=== PATIENT | female | born 1960 | race Caucasian/White ===

== ENCOUNTER → 2018-01-05 09:36 | Outpatient (CLI) | payer OTHER, SELFPAY ==
--- NOTE | 2018-01-05 09:42 | BI_ITS ---
MAMMOGRAPHY - BILATERAL SCREENING REASON FOR EXAM: Female, 57 years old. Routine annual screening examination. PERTINENT HISTORY: Sister with breast cancer. Mother with breast cancer. Aunt with breast cancer. Remote left excisional breast biopsies. TECHNIQUE: Digital bilateral breast nara (3D mammographic acquisition) in the CC and MLO projections. 2-D mediolateral oblique (MLO) and craniocaudad (CC) views of both breasts were obtained. CAD: Full Field Digital Mammography with Computer Added Detection was performed. COMPARISON: Comparison is made with prior study dated September 22, 2016 and May 22, 2015. FINDINGS: Breast Composition: The breasts are heterogeneously dense, which may obscure small masses. There are no dominant masses or suspicious calcifications. Stable small bilateral axillary lymph nodes. Stable skin calcifications in the deep inferior medial aspects of both breasts. No other significant abnormalities are identified. There has been no significant change since the prior study. BI/SCREENING MAMM (CAD), BILAT IMPRESSION: Stable bilateral screening mammogram. Yearly follow-up mammogram recommended. (A) ASSESSMENT CATEGORY: BIRADS Category 2: Benign. A letter regarding these results will be sent to the patient by the facility within 30 days. Approximately 10% of breast cancers are not detected by mammography. A normal mammogram should not delay biopsy of a clinically suspicious abnormality. [id number] Electronically Signed: Dereck Flores MD at 11:19 EST Tel [phone], Service support ,
== END ==
LOC: BIRAD 09:37 → OPBI 10:02
PROVIDERS: Family Provider Family Medicine; PCP Family Medicine; Visit Provider Family Medicine
DX: Z12.31 Encounter for screening mammogram for malignant neoplasm of breast (principal)
CPT/HCPCS: 77063; 77067

== ENCOUNTER → 2019-03-07 08:10 | Outpatient (CLI) | payer OTHER, SELFPAY ==
--- NOTE | 2019-03-07 07:23 | BI_ITS ---
MAMMOGRAPHY - BILATERAL SCREENING REASON FOR EXAM: Female, 58 years old. Routine annual screening examination. PERTINENT HISTORY: Sister with breast cancer. Mother with breast cancer. Aunt with breast cancer. Remote left excisional breast biopsies. TECHNIQUE: Digital bilateral breast celestino (3D mammographic acquisition) in the CC and MLO projections. 2-D mediolateral oblique (MLO) and craniocaudad (CC) views of both breasts were obtained. CAD: Full Field Digital Mammography with Computer Added Detection was performed. COMPARISON: Comparison is made with prior study dated January 05, 2018 and September 22, 2016. FINDINGS: Breast Composition: The breasts are heterogeneously dense, which may obscure small masses. There are no dominant masses or suspicious calcifications. Stable benign-appearing bilateral axillary lymph nodes. Stable skin calcifications seen in the deep inferior medial aspects of both breasts. No other significant abnormalities are identified. There has been no significant change since the prior study. BI/SCREEN MAMM (CAD) W/CELESTINO BILAT IMPRESSION: Stable bilateral screening mammogram. Yearly follow-up mammogram recommended. (A) ASSESSMENT CATEGORY: BIRADS Category 2: Benign. A letter regarding these results will be sent to the patient by the facility within 30 days. Approximately 10% of breast cancers are not detected by mammography. A normal mammogram should not delay biopsy of a clinically suspicious abnormality. [id number] Electronically Signed: Dereck Flores, at 8:30 EST , Service support ,
== END ==
PROVIDERS: PCP Family Medicine; Referring Provider Family Medicine; Visit Provider Family Medicine
DX: Z12.31 Encounter for screening mammogram for malignant neoplasm of breast (principal)
CPT/HCPCS: 77063; 77067

== ENCOUNTER → 2019-10-26 06:47 | Outpatient (CLI) | payer OTHER, SELFPAY ==
[2019-10-26 08:13] LABS: Microalbumin,Random Urine 7.1 mg/L (NO RANGE EST.); Microalbumin:Creatinine Ratio 6.2 mg/g CRE (<30 mg/g CRE)
[2019-10-26 09:03] LABS: Hemoglobin A1c 7.1 % (3.8-5.6)
== END ==
PROVIDERS: PCP Family Medicine; Referring Provider Family Medicine; Visit Provider Family Medicine
DX: E11.9 Type 2 diabetes mellitus without complications (principal)
CPT/HCPCS: 36415; 82043; 82570; 83036

== ENCOUNTER → 2021-08-26 | Outpatient (CLI) | payer OTHER, SELFPAY ==
--- NOTE | 2021-08-26 14:47 | BI_ITS ---
MAMMOGRAPHY - BILATERAL SCREENING REASON FOR EXAM: Female, 61 years old. Routine annual screening examination. PERTINENT HISTORY: Sister with breast cancer. Mother with breast cancer. Aunt with breast cancer. Prior left excisional breast biopsy. TECHNIQUE: Digital bilateral breast celestino (3D mammographic acquisition) in the CC and MLO projections. 2-D mediolateral oblique (MLO) and craniocaudad (CC) views of both breasts were obtained. CAD: Full Field Digital Mammography with Computer Added Detection was performed. COMPARISON: Comparison is made with prior examination dated 07/10/2020 and 03/07/2019. FINDINGS: Breast Composition: The breasts are heterogeneously dense, which may obscure small masses. There are no dominant masses or suspicious calcifications. Stable benign-appearing bilateral axillary lymph nodes. Stable skin calcifications in the deep inferior medial aspects of both breasts. No other significant abnormalities are identified. There has been no significant change since the prior study. BI/SCRN MAMM (CAD)W/CELESTINO BILAT IMPRESSION: Stable bilateral screening mammogram. Yearly follow-up mammogram recommended. (A) ASSESSMENT CATEGORY: BIRADS Category 2: Benign. A letter regarding these results will be sent to the patient by the facility within 30 days. Approximately 10% of breast cancers are not detected by mammography. A normal mammogram should not delay biopsy of a clinically suspicious abnormality. [id number] Electronically Signed: Dereck Flores MD at 15:34 EDT ,
== END | disposition home or self-care (01) ==
LOC: OPBI 14:45
PROVIDERS: PCP Family Medicine; Visit Provider Family Medicine
DX: Z12.31 Encounter for screening mammogram for malignant neoplasm of breast (principal)
CPT/HCPCS: 77063; 77067

== ENCOUNTER → 2021-10-19 | Outpatient (CLI) | payer OTHER, SELFPAY ==
[2021-10-26 11:07] LABS: Age Gdln ACOG Testing 30-65 (.)
[2021-10-26 14:19] LABS: HPV APTIMA, High Risk Negative (Negative)
[2021-10-26 14:21] LABS: HPV Reflexed? YES, CHARGE PATIENT
== END | disposition home or self-care (01) ==
PROVIDERS: PCP Family Medicine; Visit Provider Family Medicine
DX: Z01.419 Encounter for gynecological examination (general) (routine) without abnormal findings (principal); Z12.4 Encounter for screening for malignant neoplasm of cervix
CPT/HCPCS: 87624; 88175; G0145

== ENCOUNTER → 2023-01-11 | Outpatient (CLI) | payer OTHER, SELFPAY ==
--- NOTE | 2023-01-11 07:08 | BI_ITS ---
MAMMOGRAPHY - BILATERAL SCREENING REASON FOR EXAM: Female, 62 years old. Routine annual screening examination. PERTINENT HISTORY: Sister with breast cancer. Mother with breast cancer. Aunt with breast cancer. Prior left excisional breast biopsies. TECHNIQUE: Digital bilateral breast celestino (3D mammographic acquisition) in the CC and MLO projections. 2-D mediolateral oblique (MLO) and craniocaudad (CC) views of both breasts were obtained. CAD: Full Field Digital Mammography with Computer Added Detection was performed. COMPARISON: Comparison is made with prior study dated August 26, 2021 and July 10, 2020. FINDINGS: Breast Composition: The breasts are heterogeneously dense, which may obscure small masses. There are no dominant masses or suspicious calcifications. Stable bilateral axillary lymph nodes. Stable skin calcifications in the deep inferior medial aspects of both breasts. No other significant abnormalities are identified. There has been no significant change since the prior study. BI/SCRN MAMM (CAD)W/CELESTINO BILAT IMPRESSION: Stable bilateral screening mammogram. Yearly follow-up mammogram recommended. (A) ASSESSMENT CATEGORY: BIRADS Category 2: Benign. A letter regarding these results will be sent to the patient by the facility within 30 days. Approximately 10% of breast cancers are not detected by mammography. A normal mammogram should not delay biopsy of a clinically suspicious abnormality. [id number] Electronically Signed: Dereck Flores MD at 8:47 EST ,
== END | disposition home or self-care (01) ==
LOC: OPBI 06:49
PROVIDERS: PCP Family Medicine; Referring Provider Family Medicine; Visit Provider Family Medicine
DX: Z12.31 Encounter for screening mammogram for malignant neoplasm of breast (principal); Z80.3 Family history of malignant neoplasm of breast
CPT/HCPCS: 77063; 77067

== ENCOUNTER 2023-03-10 08:19 | Emergency (ER) | payer OTHER, SELFPAY ==
[2023-03-10] VITALS (15 sets, daily range): BP systolic 143–149; BP diastolic 83–93; PULSE 96–220; RESP 12–25; TEMP 36.4; O2SAT 96–99; BMI 28.8
--- NOTE | 2023-03-10 08:32 | EX.ED.DYSGE1 ---
HPI History of Present Illness Chief Complaint: Palpitations Narrative Narrative: 62-year-old female presenting with palpitations and rapid heart rate. She states she was just walking at work here at [facility] and noticed that her heart was going very quickly.Patient states she has had this in the past that she just tried to calm self down and has not been seen by anybody for this.Patient denies any cardiac history. She has past medical history of hypertension, diabetes.Patient states she has no medication changes. She states that 3 weeks ago she had COVID-19 but otherwise feels well. Denies any chest pain, shortness of breath.Patient otherwise has been eating and drinking normally. She has been making normal urine and stool. No recent travel, surgery, exogenous hormones,History of DVT/PE. She states she was bedbound with COVID a few weeks ago however. [facility] Medical History Arthritis Breast lump Hyperlipidemia IBS (irritable bowel syndrome) Impaired glucose tolerance test Infected sebaceous cyst Migraine Home Medications amitriptyline 10 mg tablet 10 mg PO QHS migraine 11/22/13 [History Last Taken 03/09/23] metformin 500 mg tablet,extended release 24 hr 1,000 mg PO DAILY diabetes 11/22/13 [History Last Taken 03/10/23] aspirin 81 mg tablet,delayed release (Adult Low Dose Aspirin) 81 mg PO DAILY heart health 01/08/17 [History Last Taken 03/10/23] cholecalciferol (vitamin D3) 25 mcg (1,000 unit) capsule 1,000 unit PO QDAY supplement 01/08/17 [History Last Taken 03/10/23] hydrochlorothiazide 12.5 mg tablet 12.5 mg PO DAILY blood pressure 01/08/17 [History Last Taken 03/10/23] triamcinolone acetonide 55 mcg nasal spray aerosol (Nasacort) 2 spray intranasal QDAY PRN allergies 01/08/17 [History Last Taken 03/09/23] B6 1.7 mg-folic 400 mcg-B12 2.4 [id number] oral capsule (Neuriva Plus Brain Performance) 1 cap PO DAILY supplement 03/10/23 [History Last Taken 03/10/23] ascorbate calcium (vitamin C) 500 mg tablet 500 mg PO DAILY supplement 03/10/23 [History Last Taken 03/10/23] glipizide 5 mg tablet, extended release 24 hr 5 mg PO BID diabetes 03/10/23 [History Last Taken 03/09/23] metoprolol tartrate 25 mg tablet 12.5 mg (1/2 x 25 mg) PO BID #30 tabs 03/10/23 [Rx Last Taken Unknown] Allergy/AdvReac Type Severity Reaction Status Date / Time No Known Allergies Allergy Verified 03/10/23 08:19 Family History Father Myocardial infarction CVA (cerebral vascular accident) Mother Myocardial infarction Adult idiopathic generalized osteoporosis Hypertension Hypercholesteremia Breast cancer Arthritis Surgical History S/P breast biopsy, left S/P hysterectomy S/P tonsillectomy S/P tubal ligation Social History Smoking Status: Never smoker second hand exposure: No alcohol intake: never substance use type: does not use caffeine: No ROS ROS ED Constitutional Constitutional ED: Denies chills, fever(s) or sweats Eyes Eyes: Denies blurry vision or change in vision ENT ENT ED: Denies ear pain or sore throat Cardiovascular Cardiovascular: Reports palpitations and racing heartbeat; Denies chest pain Respiratory/Chest Respiratory/Chest: Denies cough, dyspnea or sputum Gastrointestinal Gastrointestinal: Denies abdominal pain, constipation, diarrhea, nausea or vomiting Genitourinary Genitourinary ED: Denies dysuria, hematuria or urinary frequency Musculoskeletal Musculoskeletal: Denies arthralgias, myalgias or neck pain Integumentary Denies abscess, Abrasions or rash Neurologic Neurologic: Denies headache(s), paresthesias or weakness Psychiatric Psychiatric: Denies anxiety, depression, suicidal ideation or suicidal thoughts Endocrine Endocrinology: Denies polydipsia or polyuria EXAM Physical Exam Const Vital Signs: 03/10/23 08:20 03/10/23 08:23 03/10/23 08:26 Temperature 97.6 F L Temperature Source Temporal Pulse Rate 220 H 123 H Respiratory Rate 16 20 H Respiratory Effort Normal Non-Labored Blood Pressure 145/93 H Blood Pressure Mean 110 Pulse Ox 98 99 Oxygen Delivery Method Room Air Room Air 03/10/23 08:28 03/10/23 08:24 03/10/23 08:30 Temperature Temperature Source Pulse Rate 121 H 112 H Respiratory Rate 19 H 13 Respiratory Effort Blood Pressure 143/88 H Blood Pressure Mean 104 Pulse Ox 99 97 Oxygen Delivery Method Room Air 03/10/23 08:40 03/10/23 08:45 03/10/23 08:51 Temperature Temperature Source Pulse Rate Respiratory Rate Respiratory Effort Blood Pressure 147/83 H Blood Pressure Mean 102 Pulse Ox 97 98 96 Oxygen Delivery Method 03/10/23 09:02 03/10/23 09:10 Temperature Temperature Source Pulse Rate 113 H 103 H Respiratory Rate 25 H 12 Respiratory Effort Blood Pressure Blood Pressure Mean Pulse Ox 96 98 Oxygen Delivery Method Positive well nourished General Appearance ED: NAD; Negative for pallor HEENT Reports moist mucous membranes and dry mucous membranes Mouth ED: Yes dry mucous membranes Mouth: dry mucous membranes Eyes PERRL and EOMs intact bilaterally Resp normal respiratory effort and clear to auscultation bilaterally Auscultation: Negative for rales, rhonchi or wheezes Cardio regular rate and regular rhythm GI normal to inspection, nondistended, normoactive bowel sounds Neuro oriented x3 and CN's II-XII intact bilaterally Sensorium / Orientation: alert Psych mental status grossly normal Skin no rashes or lesions noted General Skin Exam: Negative for jaundice or pallor MDM MDM MDM Narrative Medical decision making narrative: Patient presented with tachycardic rhythm. Looking at the rhythm strip it looks like SVT however as the IV line was established the patient's heart rate Return to a sinus rhythm at a heart rate of 120 bpm and I believe she likely had SVT and. Patient feels much better. Differential includes SVT, A-fib, dehydration, anemia, electrolyte imbalance, PE, pneumonia. CBC to obtain white blood cell count,Hemoglobin, platelets. BMP to assess renal function, electrolytes, glucose. High-sensitivity troponin and EKG to assess for ischemia/arrhythmia. Chest x-ray to rule out pneumonia. Patient given a liter of IV fluids.CBC shows a normal white blood cell count. Hemoglobin Mattock are stable. Platelets are normal. Renal function electrolytes within normal limits. High-sensitivity troponin is 5. Chest x-ray my interpretation shows no acute process. The radiologist interpretation agrees.Discussed the patient with Dr. Escobar who recommended the patient be on 12.5 mg of metoprolol tartrate twice daily. Patient was given the first dose of this in the ER. Return precautions were discussed. She was given a work note for today at the request of Dr. Kc. Impression: 1. SVT Lab Data Attestation: I reviewed the patient's lab results. Labs: Laboratory Results - last 24 hr 03/10/23 08:25 WBC 11.1 H RBC 5.22 Hgb 14.8 Hct 44.8 MCV 85.8 MCH 28.4 MCHC 33.0 RDW Std Deviation 40.1 RDW Coeff of Singh 13.0 Plt Count 411 MPV 9.7 Immature Gran % (Auto) 0.400 Neut % (Auto) 62.9 Lymph % (Auto) 26.4 Reynolds % (Auto) 8.3 Eos % (Auto) 1.2 Baso % (Auto) 0.8 Absolute Neuts (auto) 7.0 Absolute Lymphs (auto) 2.94 Nucleated RBC % 0 D-Dimer Quant (PE/DVT) 0.39 Sodium 137 Potassium 4.1 Chloride 105 Carbon Dioxide 26.0 Anion Gap 6 BUN 19 H Creatinine 0.96 Estim Creat Clear Calc 61.46 Est GFR (MDRD) Af Amer 76 Est GFR (MDRD) Non-Af 62 BUN/Creatinine Ratio 19.7 Glucose 227 H Calcium 10.4 H Troponin I High Sens 5 Radiography Diagnostic Testing: Clinical Impression(s) from Imaging Studies Chest X-Ray 03/10/23 08:35 IMPRESSION: No acute pulmonary process Electronically Signed: Edin Hargrove MD at 8:48 EST Reading Location ID and State: [address] [place] [address] , Service support , Discharge Plan Triage Chief Complaint: Palpitations ED Provider: Chris Jesus Dx/Rx/DC Orders Instructions: ED Understanding Supraventricular Tachycardia (SVT) Prescriptions: New metoprolol tartrate 25 mg tablet 12.5 mg PO BID Qty: 30 0RF No Action aspirin [Adult Low Dose Aspirin] 81 mg tablet,delayed release (DR/EC) 81 mg PO DAILY hydrochlorothiazide 12.5 mg tablet 12.5 mg PO DAILY Patient Comments: pt unsure of dose triamcinolone acetonide [Nasacort] 55 mcg aerosol,spray 2 spray INTRANASAL QDAY PRN (Reason: allergies) cholecalciferol (vitamin D3) 1,000 unit capsule 1,000 unit PO QDAY amitriptyline 10 MG tablet 10 mg PO QHS metformin 500 MG tablet 1,000 mg PO DAILY glipizide 5 mg tablet extended release 24hr 5 mg PO BID Rx Instructions: take 1 tab by mouth twice daily at lunch and supper Neuriva Plus Brain Performance 1.7 mg-400 mcg- 2.4 mcg capsule 1 cap PO DAILY Rx Instructions: takes in the morning ascorbate calcium (vitamin C) 500 mg tablet 500 mg PO DAILY Stand Alone Forms: ED Work / School Excuse Primary Care Provider: Erika Cardoso Referrals: Erika Cardoso DO [Primary Care Provider] - Jack Gracia MD [Med Staff - Active Staff] - As soon as possible Activity Restrictions/Additional Instructions: I spoke with Dr. Kc who is on-call for cardiology. He is going to call the office and set you up for a Holter monitor. He recommends he follow-up with Dr. Gracia. He was to start you on metoprolol 12.5 mg p.o. twice daily. I will provide a prescription for this. Disposition Disposition: Home, Self Care
[2023-03-10] MEDS: 0.9% Normal Saline (1000mL) 1,000 ML 1000 ML IV (08:33)
--- NOTE | 2023-03-10 08:35 | RAD_ITS ---
STUDY: X-RAY CHEST REASON FOR EXAM: Female, 62 years old. chest pain TECHNIQUE: Single AP portable view of the chest. COMPARISON: None. FINDINGS: EKG leads overlie the chest The lungs are clear and expanded. There is no demonstrated pleural abnormality. Normal size heart. Normal mediastinum and michelle. Normal visualized pulmonary arteries. Normal visualized aortic arch and descending thoracic aorta. Normal visualized thoracic spine. Normal visualized ribs, clavicles, and shoulders. There is no demonstrated abnormality of the visualized soft tissue structures of the upper abdomen. RAD/Chest 1 View (Portable) IMPRESSION: No acute pulmonary process Electronically Signed: Edin Hargrove MD at 8:48 EST ,
[2023-03-10 08:38] LABS: Absolute Lymphocyte Count 2.94 X10^3/uL (0.83-4.51); Basophil# 0.09 X10^3/uL; Basophil% 0.8 % (0-1); Eosinophil# 0.13 X10^3/uL; Eosinophils% 1.2 % (0-5); Hematocrit 44.8 % (37-47); Hemoglobin 14.8 g/dL (12.0-15.0); Lymphocyte # 2.94 X10^3/ul (0.83-4.51); Lymphocyte % 26.4 % (19-41); Mean Corpuscular Hgb 28.4 pg (27.0-32.0); Mean Corpuscular Volume 85.8 fL (81-99); Mean Platelet Vol. 9.7 fl (6.2-12.0); Monocyte# 0.93 X10^3/uL; Monocyte% 8.3 % (0-10); NRBC Flagged by Analyzer 0 % (0-5); Neutrophil # 7.01 X10^3/uL (2.7-7.7); Neutrophil % 62.9 % (47-70); Platelet Count 411 K/mm3 (150-450); RBC Distribution Width SD 40.1 fl (35.1-43.9); Red Blood Count 5.22 M/mm3 (4.2-5.4); White Blood Count 11.1 K/mm3 (4.4-11.0)
[2023-03-10 08:52] LABS: Anion Gap 6 (5-15); BUN 19 mg/dL (7-18); BUN/Creat Ratio 19.7 RATIO (10-20); Calcium,Total 10.4 mg/dL (8.5-10.1); Chloride 105 mmol/L (98-107); Creatinine, Serum 0.96 mg/dL (0.55-1.02); EST Glomerular Filtration Rate 62 mL/min (>60); Est Glom Filt Rate - Afr Amer 76 mL/min (>60); Estimated Creatinine Clearance 61.46 ml/min; Glucose 227 mg/dL (74-106); Potassium 4.1 mmol/L (3.5-5.1); Sodium Level 137 mmol/L (136-145); Troponin-I HS 5 pg/mL (3.0-54.0)
[2023-03-10 08:59] LABS: D-Dimer Quantitative (DVT/PE) 0.39 FEU/ug/m (0.27-0.49)
[2023-03-10] MEDS: Metoprolol Tartrate 25 MG Tablet 12.5 MG PO (10:21)
== END 2023-03-10 10:26 | disposition home or self-care (01) ==
PROVIDERS: Emergency Provider Student in an Organized Health Care Education/Training Program; PCP Family Medicine; Visit Provider Student in an Organized Health Care Education/Training Program
DX: R00.2 Palpitations (principal); E11.9 Type 2 diabetes mellitus without complications; I47.10 Supraventricular tachycardia, unspecified; I10 Essential (primary) hypertension; E78.5 Hyperlipidemia, unspecified; G43.909 Migraine, unspecified, not intractable, without status migrainosus; Z79.899 Other long term (current) drug therapy; Z79.84 Long term (current) use of oral hypoglycemic drugs; Z79.82 Long term (current) use of aspirin; Z90.710 Acquired absence of both cervix and uterus
CPT/HCPCS: 71045; 80048; 84484; 85025; 85379; 93005; 96360; 99284; J7030; A4216

== ENCOUNTER → 2023-03-21 | Outpatient (CLI) | payer OTHER, SELFPAY ==
[2023-03-21 12:45] LABS: Vitamin D,25 Hydroxy 70.1 ng/mL
[2023-03-21 13:25] LABS: PTHIN 31.1 pg/mL (18.4-80.1)
[2023-03-21 13:53] LABS: Alkaline Phosphatase 148 U/L (45-117); GGTP 20 U/L (5-55); T4 Free Direct 0.89 ng/dL (0.76-1.46); Thyroid Stim Hormone (TSH) 0.95 uIU/mL (0.358-3.74)
== END | disposition home or self-care (01) ==
LOC: BFHLAB 09:28
PROVIDERS: PCP Family Medicine; Visit Provider Family Medicine
DX: R74.8 Abnormal levels of other serum enzymes (principal); R00.0 Tachycardia, unspecified; E55.9 Vitamin D deficiency, unspecified
CPT/HCPCS: 36415; 82306; 82977; 83970; 84075; 84439; 84443; 84481

== ENCOUNTER → 2023-04-22 | Outpatient (CLI) | payer OTHER, SELFPAY | END | disposition home or self-care (01) | LOC: PSN 06:19 | PROVIDERS: PCP Family Medicine; Referring Provider Internal Medicine Cardiovascular Disease; Visit Provider Family Medicine | DX: R00.0 Tachycardia, unspecified (principal); I49.9 Cardiac arrhythmia, unspecified | CPT/HCPCS: 93225; 93226 ==

== ENCOUNTER 2023-05-25 13:50 | Outpatient (CLI) | payer OTHER, SELFPAY ==
--- NOTE | 2023-05-25 13:51 | ECHOCS_ITS ---
Version 2 Reason For Study: SVT Procedure This was a 2D Doppler, Color Flow transthoracic echocardiogram. Contrast injection was performed. Exam performed in department. Left Ventricle Normal LV size. Left ventricular systolic function is normal. The estimated ejection fraction is 57 %. Stage 1 diastolic dysfunction. No regional wall motion abnormalities noted. Right Ventricle Normal RV size. Normal systolic function. Atria Normal left atrium. Normal right atrium. Mitral Valve Normal mitral valve. Tricuspid Valve Normal tricuspid valve. Mild tricuspid valve insufficiency. Pulmonary artery systolic pressure is 24 mmHg. Aortic Valve Trisinus/trileaflet aortic valve. Pulmonic Valve Normal pulmonic valve. Great Vessels Normal aortic root. The pulmonary artery is normal size. Normal inferior vena cava. Pericardium/Pleural No pericardial effusion. Medication Diluted definity 2ml given slow IV push to enhance endocardial definition. MMode/2D Measurements & Calculations LVIDd: 4.2 cm IVSd: 0.82 cm Ao root diam: 3.2 cm LVIDs: 2.7 cm LVPWd: 0.78 cm RVDd: 3.4 cm FS: 35.1 % LAV(MOD-bp): 29.8 ml LVAd ap4: 25.2 cm2 SV(MOD-sp4): 40.0 ml LAV(MOD-bp) Indexed: 16.8 ml/m2 LVLd ap4: 7.4 cm LAV(MOD-sp2): 28.1 ml EDV(MOD-sp4): 70.7 ml LAV(MOD-sp4): 32.2 ml EDV(sp4-el): 73.2 ml LVAs ap4: 15.2 cm2 LVLs ap4: 6.3 cm ESV(MOD-sp4): 30.7 ml ESV(sp4-el): 31.3 ml EF(MOD-sp4): 56.5 % EF(sp4-el): 57.2 % SV(sp4-el): 41.9 ml LA A4 area: 13.6 cm2 LA dimension(2D): 3.2 cm RA A4 area: 12.6 cm2 TAPSE: 2.5 cm Time Measurements MV dec time: 0.22 sec Doppler Measurements & Calculations MV E max manoj: 65.7 cm/sec Lat Peak E' Manoj: 11.8 cm/sec Med Peak E' Manoj: 7.1 cm/sec MV A max manoj: 103.4 cm/sec E/E' lat: 5.6 E/E' med: 9.3 MV E/A: 0.64 MV dec slope: 298.4 cm/sec2 Ao V2 max: 125.4 cm/sec LV V1 max: 92.2 cm/sec Ao max P.3 mmHg LV V1 max P.4 mmHg Ao V2 mean: 92.5 cm/sec Ao mean P.7 mmHg Ao V2 VTI: 26.1 cm PA V2 max: 78.0 cm/sec PI end-d manoj: 113.6 cm/sec TR max manoj: 223.5 cm/sec TR max P.0 mmHg ECHO/Echo Complete W/ Contrast Interpretation Summary Normal LV size. Left ventricular systolic function is normal. The estimated ejection fraction is 57 %. Stage 1 diastolic dysfunction. Contrast injection was performed. Ordering Physician: Michael Lowery Referring Physician: Erika Cardoso Performed By: Nohemi Friend, RDCS, RVT
== END 2023-05-25 23:59 | disposition home or self-care (01) ==
PROVIDERS: PCP Family Medicine; Referring Provider Internal Medicine Cardiovascular Disease; Visit Provider Internal Medicine Cardiovascular Disease
DX: I47.10 Supraventricular tachycardia, unspecified (principal); I36.1 Nonrheumatic tricuspid (valve) insufficiency
CPT/HCPCS: 93306; Q9957; A4216; C8929

== ENCOUNTER → 2023-09-19 | Outpatient (CLI) | payer OTHER, SELFPAY ==
[2023-09-19 13:04] LABS: Mucous, Urine 0 SEEN /hpf (<or=2+); Red Blood Cells-Urine 0 SEEN /hpf (0-5); Squamous Epithelial Cells - UA 0 SEEN /hpf (5-10)
[2023-09-19 13:11] LABS: Color, Urine Yellow (Yellow); Glucose, Dipstick Normal (Normal); Ketone-Dipstick Negative (Negative); Leukocyte Esterase-Dipstick 100 /ul (Negative); Nitrite-Dipstick Negative (Negative); Occult Blood-Urine Negative /ul (Negative); Protein-Dipstick Negative (Negative); Specific Gravity, Urine 1.015 (1.002-1.030); Urine Bilirubin Dipstick Negative (Negative); Urine Clarity Clear (Clear); Urine Urobilinogen Normal (Normal)
[2023-09-19 13:22] LABS: Bacteria RARE /hpf (None Seen); White Blood Cells 10-25 SEEN /hpf (0-5)
== END | disposition home or self-care (01) ==
LOC: LABSPEC 13:02
PROVIDERS: PCP Family Medicine; Referring Provider Family Medicine; Visit Provider Family Medicine
DX: R30.0 Dysuria (principal)
CPT/HCPCS: 81001

== ENCOUNTER → 2024-02-07 | Outpatient (CLI) | payer OTHER, SELFPAY ==
--- NOTE | 2024-02-07 10:44 | BI_ITS ---
MAMMOGRAPHY - BILATERAL SCREENING 3-D TOMOSYNTHESIS REASON FOR EXAM: Female, 63 years old. SCREENING PERTINENT HISTORY: No significant family history. TECHNIQUE: 2-D mammograms and 3-D Tomosynthesis of the breast (s) were performed. CAD was performed. COMPARISON: 01/11/2023 FINDINGS: The breast composition is heterogeneously dense that can obscure small breast masses. Scattered benign calcifications are seen. No dense spiculated masses or suspicious microcalcifications are identified. No architectural distortion is identified. There is no skin thickening or retraction. There has been no significant change since the prior study. BI/SCRN MAMM (CAD)W/CELESTINO BILAT IMPRESSION: No mammographic signs of malignancy. Routine yearly mammograms recommended. ASSESSMENT CATEGORY: BIRADS Category 1: Negative. A letter regarding these results will be sent to the patient by the facility within 30 days. FOLLOW UP RECOMMENDATION: Yearly follow up mammogram recommended. (A) Approximately 10% of breast cancers are not detected by mammography. A normal mammogram should not delay biopsy of a clinically suspicious abnormality. Electronically Signed: Isaac Ware MD at 19:50 EST ,
== END | disposition home or self-care (01) ==
LOC: OPBI 08:09
PROVIDERS: PCP Family Medicine; Referring Provider Family Medicine; Visit Provider Family Medicine
DX: Z12.31 Encounter for screening mammogram for malignant neoplasm of breast (principal)
CPT/HCPCS: 77063; 77067

== ENCOUNTER → 2025-01-08 | Outpatient (CLI) | payer OTHER, SELFPAY ==
--- NOTE | 2025-01-08 14:10 | CT_ITS ---
PROCEDURE: ABDOMEN/PELVIS WITH CONTRAST 01/08/2025 REASON FOR EXAM: LLQ PAIN, SUPRAPUBIC PAIN R/O DIVERTICULITIS TECHNIQUE: Procedure Code: [id number] Modality: CT Procedure: ABDOMEN/PELVIS WITH CONTRAST Coronal and Sagittal reconstruction series were provided. CONTRAST: Isovue-300 VOLUME: 100 mL. Oral contrast was given. One or more dose reduction techniques were used (e.g., Automated exposure control, adjustment of the mA and/or kV according to patient size, use of iterative reconstruction technique. RADIATION DOSE SUMMARY: CTDlvol: 15.8 mGy DLP: 1660.77 mGycm COMPARISON: None FINDINGS: Lung bases: The lung bases are clear. Liver: Diffuse fatty infiltration. Gallbladder: Unremarkable. Spleen: Normal size. Pancreas: Normal size without evidence of mass surrounding inflammation or ductal dilation. Adrenals: Unremarkable Kidneys: Normal renal sizes. No hydronephrosis. Bladder: Unremarkable Reproductive Organs: Prior hysterectomy. There is a 12.6 cm by 8.2 cm by 9.6 cm cystic mass in the central portion of the pelvis which extends cephalad to the urinary bladder. There is also evidence of irregular nodular density along its inferior aspect of the mass in the region of the right cul-de-sac. Correlation with ultrasound recommended. Bowel: Nonspecific bowel pattern. Appendix: The appendix is not identified. There is no inflammatory process identified in the right lower quadrant to suggest appendicitis. Lymph nodes: Unremarkable. Vasculature: Mild diffuse atherosclerotic calcifications are noted. Peritoneum / Retroperitoneum: Unremarkable Bones: Degenerative changes of the spine. Loss of the normal lumbar lordosis. CT/Abdomen/Pelvis WITH Contrast IMPRESSION: Large cystic mass in the pelvis as described. A neoplastic process should be r uled out. Sonographic correlation recommended for further evaluation. Reading Location: [id number]
[2025-01-08 14:23] LABS: CREATININE FINGERSTICK < 1.0 mg/dL (0.55-1.02); EGFR FINGERSTICK > 60.0000 mL/min (>60)
== END | disposition home or self-care (01) ==
LOC: CT 13:45
PROVIDERS: PCP Family Medicine; Referring Provider Family Medicine; Visit Provider Family Medicine
DX: Z00.01 Encounter for general adult medical examination with abnormal findings (principal); R10.32 Left lower quadrant pain; R10.24 Suprapubic pain
CPT/HCPCS: 74177; Q9967

== ENCOUNTER → 2025-01-14 | Outpatient (CLI) | payer OTHER, SELFPAY ==
--- NOTE | 2025-01-14 13:21 | US_ITS ---
PROCEDURE: PELVIC W/ TRANSVAGINAL 01/14/2025 REASON FOR EXAM: PELVIC MASS ON CT TECHNIQUE: Procedure Code: USPELTVAG Modality: US Procedure: PELVIC W/ TRANSVAGINAL COMPARISON: CT abdomen and pelvic study dated 01/08/2025 FINDINGS: Measurements: Uterus: The uterus is absent compatible with the patient's history of hysterectomy. Right Ovary: 5.3 x 3.9 x 3.9 cm. With a volume of 31.5 mL. There is a cystic structure identified in the location of the right ovary which appears to represent a possible right ovarian simple cyst measuring 3.8 x 3.2 x 2.2 cm. In the midline of the pelvis there is a hypoechoic smoothly marginated structure measuring 13.6 x 10.2 x 8.1 cm. There is no obvious direct connection seen with this mass to the ovary. It could however represent an endometrioma, functional cyst, hemorrhagic cyst or ovarian fibroma however other benign and malignant neoplastic processes should also be considered. Left Ovary: Left ovary not visualized. The patient may have had an oophorectomy. Clinically correlate. Other: Urinary bladder measures 11.0 x 7.1 x 3.2 cm. Urinary bladder volume measures 133 mL. The wall is smooth. No filling defects are seen in the urinary bladder. US/Pelvic w/ Transvaginal IMPRESSION: O Rad 4 Tthere is a benign-appearing cyst involving the right ovary. There is a hypoechoic mass seen in the midline which may be an exophytic mass e xtending from the right ovary. No direct connection was visualized on the images submitted for review. Both benign and malignant neoplastic processes should be considered. Reading Location: [id number]
== END | disposition home or self-care (01) ==
LOC: US 13:20
PROVIDERS: PCP Family Medicine; Referring Provider Family Medicine; Visit Provider Family Medicine
DX: R19.00 Intra-abdominal and pelvic swelling, mass and lump, unspecified site (principal)
CPT/HCPCS: 76830; 76856